=== PATIENT | female | born 1955 | race Caucasian/White ===

== ENCOUNTER 2016-08-27 23:29 | Emergency (ER) | payer OTHER ==
[~2016-08-27] VITALS: Ht 160 cm; Wt 98.2 kg
[~2016-08-27 23:29] MED LIST: ALBUAER2 INH; ALEN70TA4 PO; AMLO5TAB2 PO; ASPI81TA28 PO; CALC500C70 PO; CMD25 PO; DIPH-437 PO; LPR25 PO; MOME100A INH; POTA1TAB PO; SIMV20TA2 PO; prednisone; zithromax
[2016-08-27 23:33] VITALS: TEMP 36.8; Ht 160 cm; Wt 98.2 kg
[2016-08-27] MEDS ORDERED: MoRPHine SULFATE 4 MG/ML 1 ML CARP\\VIAL IV STA (23:50)
[2016-08-27] MEDS ORDERED: ONDANSETRON INJ 2 MG/ML 2 ML VIAL IV STA (23:50)
[2016-08-28 00:03] VITALS: O2SAT 96
[2016-08-28 00:19] LABS: BASO % 0.3 %; BASO ABS # 0.03 K/uL (0-0.2); COMPLETE YES; EOS % 1.2 %; HEMATOCRIT 40.8 % (37-47); IG% 0.3 %; LYMPH % 28.9 %; LYMPH ABS # 2.75 K/uL (1.2-3.4); MEAN CELL VOLUME 84.3 fL (80-100); MEAN CORPUSCULAR HEMOGLOBIN 27.7 pg (25-34); MEAN CORPUSCULAR HGB CONC 32.8 g/dl (32-36); MEAN PLATELET VOLUME 9.8 fL (7.4-10.4); MONO % 6.9 %; NEUT % 62.4 %; PLATELET COUNT 333 K/uL (130-400); RED BLOOD COUNT 4.84 M/uL (4.2-5.4); WHITE BLOOD COUNT 9.53 K/uL (4.8-10.8)
[2016-08-28] MEDS ORDERED: LEVO50TA6 PO (00:19)
[2016-08-28] MEDS ORDERED: MAGN400T6 PO (00:20)
[2016-08-28] MEDS ORDERED: POTA20TA16 PO (00:20)
[2016-08-28] MEDS ORDERED: PRLSR20 PO (00:21)
[2016-08-28] MEDS ORDERED: METO25TA56 PO (00:23)
[2016-08-28] MEDS ORDERED: INDA1TAB3 PO (00:25)
[2016-08-28] MEDS ORDERED: SODIUM CHLORIDE 0.9% 500ML 500 ML IV STA (00:26)
[2016-08-28 00:44] LABS: ALT/SGPT 18 U/L (12-78); BLOOD UREA NITROGEN 15 mg/dl (7-18); BUN/CREATININE RATIO 12.8 (10-20); CALCIUM 9.2 mg/dl (8.5-10.1); CARBON DIOXIDE 28 mmol/L (21-32); CHLORIDE 105 mmol/L (98-107); GLUCOSE 88 mg/dl (70-99); MAGNESIUM 2.2 mg/dl (1.8-2.4); POTASSIUM 3.9 mmol/L (3.5-5.1); SODIUM 142 mmol/L (136-145)
[2016-08-28] MEDS ORDERED: OPTIRAY 320 IV PRN (00:45)
[2016-08-28 00:48] LABS: ALKALINE PHOSPHATASE 63 U/L (45-117); AST/SGOT 20 U/L (15-37); CKMB/CK RATIO 0.7 (0-3.0)
--- NOTE | 2016-08-28 02:23 | EMERGENCY ROOM VISIT NOTE ---
History First contact with patient: 23:37 Chief Complaint: BACK PAIN Stated Complaint: PULLED MUSCLE IN BACK History of Present Illness The patient is a 61 year old female who presents to the Emergency Room with complaints of left upper back and lateral chest pain for the past day described as aching, 9 out of 10. Nothing makes it better or worse. She tried Tylenol with no relief of symptoms. Patient denies dyspnea, fever, chills, abdominal pain, arm pain, numbness, tingling, rash. Patient has had blood clots in the past. She has a history of initial fibrillation. She is only taking a baby aspirin. Patient quit smoking. No recent travel. No leg pain or swelling. Review of Systems See HPI for pertinent positives & negatives. A total of 10 systems reviewed and were otherwise negative. Past Medical/Surgical History Medical Problems: (1) Appendectomy (2) section (3) Hyperlipidemia (4) Hypertension a fibrillation, COPD Family History Heart disease Social History Smoking Status: Former Smoker Alcohol Use: occasionally Drug Use: none Marital Status: in relationship Occupation Status: employed Current/Historical Medications Scheduled Alendronate Sodium (Fosamax), 70 MG PO WK Aspirin (Aspirin Ec), 81 MG PO DAILY Calcium/Vitamin D (Os-Joel 500 Plus D), 1 TAB PO DAILY Indapamide (Lozol), 1.25 MG PO DAILY Levothyroxine Sodium (Levothyroxine Sodium), 50 MCG PO DAILY Magnesium Oxide (Mag-Ox), 400 MG PO DAILY Metoprolol Tartrate (Lopressor) (Lopressor), 12.5 MG PO BID Mometasone Furoate-Formoterol (Dulera 100/5 Mcg), 2 PUFFS INH BID Omeprazole (Prilosec), 20 MG PO DAILY Potassium Ext Rel (Klor-Con), 20 MEQ PO DAILY Potassium Gluconate (Potassium Gluconate), 1 TAB PO DAILY Simvastatin (Zocor), 40 MG PO QPM Scheduled PRN Acetaminophen/Diphenhydramine (Tylenol Pm), 1 TAB PO HS PRN for Insomnia Albuterol (Ventolin), 2 PUFFS INH BID PRN for SOB/Wheezing Allergies Coded Allergies: Cephalexin (Verified Allergy, Unknown, ., 08/28/16) Bupropion (Verified Adverse Reaction, Intermediate, seizures, 08/28/16) Lobster (Verified Adverse Reaction, Intermediate, VOMITING, 08/28/16) Physical Exam Vital Signs Date Time Temp Pulse Resp B/P Pulse Ox O2 Delivery O2 Flow Rate FiO2 08/28/16 01:01 61 20 131/70 95 Room Air 08/28/16 00:10 66 08/28/16 00:03 96 Room Air 08/27/16 23:33 36.8 68 20 166/91 95 Room Air Physical Exam VITALS: Vitals are noted on the nurse's note and reviewed by myself. Vital signs stable. GENERAL: Pleasant female, in no acute distress, nondiaphoretic, well-developed well-nourished. SKIN: The skin was without rashes, erythema, edema, or bruising. There is no tenting of the skin. Capillary reflex less than 2 seconds. HEAD: Normocephalic atraumatic. EARS: External auditory canals clear, tympanic membranes pearly vargas without erythema or effusion bilaterally. EYES: Pupils equal round and reactive to light and accommodation. Conjunctivae without injection, sclerae without icterus. Extraocular movements intact. NOSE: Patent, turbinates without inflammation or discharge MOUTH: Mucous membranes moist. Pharynx without erythema or exudate. Uvula midline. Airway patent. Tongue does not deviate. NECK: Supple without nuchal rigidity. No lymphadenopathy. No thyromegaly. Cervical spine is nontender. No JVD. HEART: Regular rate and rhythm LUNGS: Clear to auscultation bilaterally without wheezes, rales or rhonchi. No dullness to percussion. No retractions or accessory muscle use. ABDOMEN: Positive bowel sounds x 4. Normal tympanic percussion. Soft, nontender, without masses or organomegaly. Guaman sign negative. No guarding or rebound tenderness. MUSCULOSKELETAL: No muscle atrophy, erythema, or edema noted. Minimal T6 and 7 tenderness to palpation. No rashes appreciated. No lumbar tenderness. Left upper centrifugal screen tender to palpation. NEURO: Patient was alert and oriented to person place and time. Normal sensation to light and sharp touch. No focal neurological deficits. Medical Decision & Procedures Laboratory Results 08/28/16 00:05 Red Blood Count 4.84, Mean Corpuscular Volume 84.3, Mean Corpuscular Hemoglobin 27.7, Mean Corpuscular Hemoglobin Concent 32.8, Mean Platelet Volume 9.8, Neutrophils (%) (Auto) 62.4, Lymphocytes (%) (Auto) 28.9, Monocytes (%) (Auto) 6.9, Eosinophils (%) (Auto) 1.2, Basophils (%) (Auto) 0.3, Neutrophils # (Auto) 5.95, Lymphocytes # (Auto) 2.75, Monocytes # (Auto) 0.66, Eosinophils # (Auto) 0.11, Basophils # (Auto) 0.03 08/28/16 00:05 Test 08/28/16 00:05 08/28/16 00:08 08/28/16 02:03 White Blood Count 9.53 K/uL (4.8-10.8) Red Blood Count 4.84 M/uL (4.2-5.4) Hemoglobin 13.4 g/dL (12.0-16.0) Hematocrit 40.8 % (37-47) Mean Corpuscular Volume 84.3 fL (80-100) Mean Corpuscular Hemoglobin 27.7 pg (25-34) Mean Corpuscular Hemoglobin Concent 32.8 g/dl (32-36) Platelet Count 333 K/uL (130-400) Mean Platelet Volume 9.8 fL (7.4-10.4) Neutrophils (%) (Auto) 62.4 % Lymphocytes (%) (Auto) 28.9 % Monocytes (%) (Auto) 6.9 % Eosinophils (%) (Auto) 1.2 % Basophils (%) (Auto) 0.3 % Neutrophils # (Auto) 5.95 K/uL (1.4-6.5) Lymphocytes # (Auto) 2.75 K/uL (1.2-3.4) Monocytes # (Auto) 0.66 K/uL (0.11-0.59) Eosinophils # (Auto) 0.11 K/uL (0-0.5) Basophils # (Auto) 0.03 K/uL (0-0.2) RDW Standard Deviation 46.7 fL (36.4-46.3) RDW Coefficient of Variation 15.2 % (11.5-14.5) Immature Granulocyte % (Auto) 0.3 % Immature Granulocyte # (Auto) 0.03 K/uL (0.00-0.02) Anion Gap 9.0 mmol/L (3-11) Est Creatinine Clear Calc Drug Dose 55.7 ml/min Estimated GFR () 56.9 Estimated GFR (Non- 49.1 BUN/Creatinine Ratio 12.8 (10-20) Calcium Level 9.2 mg/dl (8.5-10.1) Magnesium Level 2.2 mg/dl (1.8-2.4) Total Bilirubin 0.4 mg/dl (0.2-1) Direct Bilirubin < 0.1 mg/dl (0-0.2) Aspartate Amino Transf (AST/SGOT) 20 U/L (15-37) Alanine Aminotransferase (ALT/SGPT) 18 U/L (12-78) Alkaline Phosphatase 63 U/L (45-117) Total Creatine Kinase 210 U/L (26-192) Creatine Kinase MB 1.4 ng/ml (0.5-3.6) Creatine Kinase MB Ratio 0.7 (0-3.0) Total Protein 8.0 gm/dl (6.4-8.2) Albumin 3.6 gm/dl (3.4-5.0) Lipase 114 U/L (73-393) Bedside D-Dimer > 450 ng/mlFEU (0-450) Bedside Troponin I 0.000 ng/ml (0-0.045) Medications Administered Medications (Trade) Dose Ordered Sig/Danyelle Route Start Time Stop Time Status Last Admin Dose Admin Morphine Sulfate (MoRPHine SULFATE INJ) 4 mg NOW STAT IV 08/27/16 23:50 08/27/16 23:52 DC 08/28/16 00:14 4 MG Ondansetron HCl 4 mg 4 mg NOW STAT IV 08/27/16 23:50 08/27/16 23:52 DC 08/28/16 00:13 4 MG Sodium Chloride (Nss 500ml) 500 ml @ 999 mls/hr Q31M STAT IV 08/28/16 00:26 08/28/16 00:56 DC 08/28/16 00:40 999 MLS/HR ED Course Prior records/ancillary studies reviewed. Triage Nursing notes reviewed. Additional history obtained from family The patient's history was concerning for back pain. Differential diagnosis: Etiologies such as musculoskeletal, cardiac, PE, disc herniation, fracture, aortic disease, metastatic disease, cord compression, discitis, infection, renal colic, gastrointestinal, acute exacerbation of chronic back pain, sciatica , cauda equina, as well as others were entertained. Physical findings: As above. No focal neurologic findings noted. ER treatment provided: Morphine, Zofran On reassessment the patient felt better. Diagnostics interpreted by me: EKG: Normal sinus, normal intervals, no acute ST-T wave changes. Impression normal sinus rhythm interpreted by myself The labs revealed 2 negative troponins. Imaging studies: CTA CHEST: Comparison is made to CT chest with contrast dated 02/03/16. There is no evidence of acute pulmonary embolism. Thoracic aorta and main pulmonary artery are normal in caliber. There is stable mild cardiomegaly with coronary atherosclerosis. There is no significant pericardial effusion. There is no adenopathy by CT size criteria. There is mild paraseptal emphysema. There is no consolidation, effusion, or pneumothorax. There is no pulmonary nodule or mass. Visualized upper abdomen is unremarkable. There are no acute osseous findings. Radiologist: Danya Alonzo M.D. Chest x-ray with no acute consolidation or pneumothorax per my interpretation This appears to be consistent with left upper back chest pain. Patient was informed of signs or symptoms of shingles. She was advised that she developed a rash that she should call her family care DrRuddy for medications. Patient had a normal EKG. No acute findings and CTA imaging. She had an elevated d-dimer so CT imaging was ordered. 2 negative troponins. She is advised to rest, stay well-hydrated and follow-up family care in a day or 2 or here in the ER sooner for chest pain, difficulty breathing, inability to walk, worsening signs or symptoms or as needed. The patient's physical examination and detailed history did not reveal any red flags for back pain such as those listed in the differential diagnosis. Therefore advanced diagnostics and consultations were felt to be unwarranted. By the evaluation outlined above emergent etiologies such as fracture, aortic disease, metastatic disease, infection, renal colic, gastrointestinal, cord compression, cauda equina, as well as others were deemed relatively unlikely. The pt informed about the findings as listed above. All questions were answered and pleased with the treatment. Return instructions were outlined and the patient was discharged in stable condition. Referral: The patient was referred back to primary care physician for follow-up in 2 to 3 days for a recheck of the current condition. Case reviewed by attending. Medical Decision As above Impression Primary Impression: Upper back pain on left side Departure Information Dispostion Home / Self-Care Condition GOOD Referrals Ryan Dixon D.O. (PCP) Patient Instructions A Signature Page, My [facility] Additional Instructions DO NOT drive, drink alcohol, operate machinery, or perform dangerous activities today. You were given medications in the ER that can affect your ability to safely function or operate a vehicle. If you develop a shingles rash then call your family care Dr. for steroids and antivirals. Oxycodone (OxyIR) 5mg: Take 1-2 pills every four hours for breakthrough pain. Avoid alcohol, operating machinery or dangerous equipment, working on ladders or roofs, DRIVING, or situations where being under the influence may be dangerous. It is recommended to use an [id number] stool softener such as Colace, 100mg twice daily while taking this medication to avoid constipation. Ibuprofen(Motrin, Advil) may be used for fever or pain. Use 600mg every six hours as needed. Take with food. Avoid using more than 2400mg in a 24 hour period. Do not use 2400mg per day for more than three consecutive days without physician direction. Prolonged inappropriate use can lead to stomach upset or ulcers. This medication can be taken if you need to drive, work, or perform activities which may be dangerous when taking narcotic pain medication. (AND/OR) Acetaminophen(Tylenol) may be used for fever or pain. Use 1000mg every six hours as needed. Avoid using more than 3000mg in a 24 hour period. This medication can be taken if you need to drive, work, or perform activities which may be dangerous when taking narcotic pain medication. Rest and avoid heavy lifting until your symptoms resolve and then gradually return to full activity. A good rule of thumb is if it hurts your back to perform a certain activity, then it should be avoided until you are healthy again. A heating pad, warm compresses, or a hot shower may help with tight muscles and can be done several times a day as needed. Continue current medications. Return to the ER immediately for any numbness, tingling, severe pain, chest pain , difficulty breathing, loss of control of your bowels or bladder, inability to walk, or as needed. Follow up with your primary care physician within 3-5 days for a recheck of your current condition.
[2016-08-28] MEDS ORDERED: OXYCODONE IR HOME PACK PO ONE (02:30)
[2016-08-28 02:34] VITALS: BP 137/71; PULSE 65; O2SAT 95
--- NOTE | 2016-08-28 06:42 | DIAGNOSTIC IMAGING REPORT ---
CHEST ONE VIEW PORTABLE CLINICAL HISTORY: Atypical chest pain COMPARISON STUDY: 08/09/2015 FINDINGS: The heart is borderline enlarged. There is no focal pulmonary consolidation. There is no failure. There are no pleural effusions.[ IMPRESSION: No active disease in the chest. Electronically signed by: Larry Sanchez M.D. 08/28/2016 6:41 AM Dictated Date/Time: 08/28/2016 6:40 AM
--- NOTE | 2016-08-28 07:09 | DIAGNOSTIC IMAGING REPORT ---
CT ANGIOGRAM OF THE CHEST CLINICAL HISTORY: Upper back pain. Suspected pulmonary embolism. COMPARISON STUDY: 02/03/2016 TECHNIQUE: Following the IV administration of 105 mL of Optiray-320, CT angiogram of the thorax was performed from the thoracic inlet to the lung bases utilizing the pulmonary embolus protocol. Images are reviewed in the axial, sagittal, and coronal planes. IV contrast was administered without complication. MIP imaging was performed. CT DOSE: 548.31 mGy.cm FINDINGS: The upper abdomen reveals fatty atrophy of the pancreas. There are mildly enlarged AP window lymph nodes slightly progressive when compared the preceding study. Right paratracheal lymph nodes are the upper limits of normal in size. There is no pathologic axillary lymphadenopathy. There was no evidence of thoracic aortic dilatation. There are coronary artery calcifications present. There were no pulmonary artery filling defects to indicate acute pulmonary embolism. No pleural effusions are visualized. There is no focal pulmonary consolidation. There are dependent atelectatic changes. There is mild emphysema. IMPRESSION: 1. No CT evidence of acute pulmonary embolism 2. Minimally enlarged mediastinal lymph nodes (this finding was not described in the pulmonary report) 3. No evidence of focal pulmonary consolidation Electronically signed by: Larry Sanchez M.D. 08/28/2016 7:08 AM Dictated Date/Time: 08/28/2016 7:02 AM
== END 2016-08-28 02:36 | disposition home or self-care (01) ==
LOC: C.EDB 23:30 → C.EDA 08-28 02:36
DX: M54.9 Dorsalgia, unspecified (principal); R07.9 Chest pain, unspecified; I48.91 Unspecified atrial fibrillation; Z79.82 Long term (current) use of aspirin; Z87.891 Personal history of nicotine dependence; E78.5 Hyperlipidemia, unspecified; I10 Essential (primary) hypertension; J44.9 Chronic obstructive pulmonary disease, unspecified; Z79.899 Other long term (current) drug therapy

== ENCOUNTER 2016-11-14 19:45 | Emergency (ER) | payer OTHER ==
[~2016-11-14] VITALS: Ht 157.5 cm; Wt 98.0 kg
[~2016-11-14 19:45] MED LIST changes: -AMLO5TAB2 PO; -CMD25 PO; +INDA1TAB3 PO; +LEVO50TA6 PO; -LPR25 PO; +MAGN400T6 PO; +METO25TA56 PO; +POTA20TA16 PO; +PRLSR20 PO; -prednisone; -zithromax
[2016-11-14 19:57] VITALS: TEMP 36.8; Ht 157.5 cm; Wt 98.0 kg
[2016-11-14] MEDS ORDERED: IBUPROFEN 600 MG TAB PO STA (20:18)
--- NOTE | 2016-11-14 20:41 | DIAGNOSTIC IMAGING REPORT ---
RIGHT ANKLE MIN 3 VIEWS ROUTINE CLINICAL HISTORY: fall; R ankle pain Right trauma. Pain. COMPARISON: None. DISCUSSION: Small avulsion from the tip of the distal fibula. This is well-corticated and is of indeterminate age. Tiny avulsion tip medial malleolus. Soft tissue edema over both the lateral as well as medial malleolus. Small heel spur. Subtalar joint is intact. IMPRESSION: 1. Avulsion from the tip of the distal fibula indeterminate age.. 2. Tiny punctate avulsion tip medial malleolus. 3. Soft tissue edema. Electronically signed by: Winston Davis M.D. 11/14/2016 8:40 PM Dictated Date/Time: 11/14/2016 8:38 PM
[2016-11-14] MEDS ORDERED: MECL1TAB40 PO (21:09)
[2016-11-14] MEDS ORDERED: FLX5 PO (21:09)
[2016-11-14] MEDS ORDERED: PRVHFAIN INH (21:09)
[2016-11-14] MEDS ORDERED: PROM25TA9 PO (21:09)
[2016-11-14] MEDS ORDERED: AZITTAB PO (21:09)
[2016-11-14] MEDS ORDERED: PRED10PA4 PO (21:09)
[2016-11-14] MEDS ORDERED: PRMVC VI (21:09)
[2016-11-14] MEDS ORDERED: INDA2.5T PO (21:09)
[2016-11-14] MEDS ORDERED: SIMV40TA2 PO (21:14)
[2016-11-14 21:42] VITALS: BP 144/81; PULSE 62; O2SAT 98
--- NOTE | 2016-11-16 01:38 | EMERGENCY ROOM VISIT NOTE ---
ED Visit Note First contact with patient: 20:04 CHIEF COMPLAINT: Right ankle pain. HISTORY OF PRESENT ILLNESS: Ms. Osborn is a 61-year old white female who ambulates into the ED accompanied by a male friend complaining of right ankle pain. She reports approximately 10 hours ago she stepping out of her house and twisted her ankle. Immediately after the fall she was having pain but was able to stand up and work for the rest of the day. Throughout the day she reports that she was having worsening pain and noted swelling throughout the ankle. She is currently complaining of constant achy pain over the medial and lateral malleolus area. She rates the pain a 5/10. Pain is nonradiating. Her pain worsens with ambulation, plantar flexion and inversion. She has not identified any alleviating factors related to the pain. She has not taken any medication for pain prior to arrival at the hospital. She denies any associated symptoms including hip pain, knee pain, lower leg pain, foot pain, leg weakness/numbness/ tingling. She denies any previous significant injuries or surgeries to the right ankle or foot. REVIEW OF SYSTEMS: As noted above in History of Present Illness. PAST MEDICAL HISTORY: Hypertension, unspecified heart disease, asthma, bronchitis, pneumonia, unspecified stomach disorder, DVT in the left leg, status post appendectomy, section 2 and unspecified knee surgery. CURRENT MEDICATIONS: Medications Dose Route/Sig Max Daily Dose Days Date Category Dose Instructions Zocor (Simvastatin) 40 Mg Tab 40 Mg PO QPM 11/14/16 Reported Meclizine HCl 12.5 Mg Tab 1 Tab PO TID PRN 10 11/14/16 Reported Phenergan (Promethazine HCl) 25 Mg Tab 25 Mg PO Q6H PRN 11/14/16 Reported Prednisone 10 Mg Jacob Unknown Dose PO DIRECTED PRN 11/14/16 Reported Premarin (Estrogens, Conjugated) 14 Appln/30 Gm Cr 1 Dose 2XWK 11/14/16 Reported Cyclobenzaprine HCl 5 Mg Tab 5 Mg PO TID PRN 11/14/16 Reported Zithromax Z-Jacob (Azithromycin) 250 Mg Tab 1 Pkt PO UD PRN 5 11/14/16 Reported Indapamide 2.5 Mg Tab 12.5 Mg PO DAILY 90 11/14/16 Reported Ventolin Hfa (Albuterol) 60 Puffs/5400 Mcg Aers 2 Puffs INH BID 11/14/16 Reported Lopressor (Metoprolol Tartrate) 25 Mg Tab 12.5 Mg PO BID 08/28/16 Reported Prilosec (Omeprazole) 20 Mg Capcr 20 Mg PO DAILY 08/28/16 Reported Mag-Ox (Magnesium Oxide) 400 Mg Tab 400 Mg PO DAILY 08/28/16 Reported Levothyroxine Sodium 50 Mcg Tab 50 Mcg PO DAILY 90 08/28/16 Reported Tylenol Pm (Acetaminophen/Diphenhydramine HCl) 500 Mg/25 Mg Tab 1 Tab PO HS PRN 02/02/15 Reported Potassium Gluconate 595 Mg Tab 1 Tab PO DAILY 02/02/15 Reported Os-Joel 500 Plus D (Calcium/Vitamin D) Tab 1 Tab PO DAILY 02/02/15 Reported Fosamax (Alendronate Sodium) 70 Mg Tab 70 Mg PO WK 02/02/15 Reported pt states takes on saturdays Dulera 100/5 Mcg (Mometasone Furoate-Formoterol) 1 Aer Aer 2 Puffs INH BID 02/02/15 Reported Aspirin Ec (Aspirin) 81 Mg Tab 81 Mg PO DAILY 02/02/15 Reported ALLERGIES TO MEDICATIONS: Keflex, Wellbutrin. SOCIAL HISTORY: Patient is currently employed; she feels safe in her home environment; she denies tobacco use; she admits to alcohol use. PHYSICAL EXAM: Vital Signs: Date Time Temp Pulse Resp B/P Pulse Ox O2 Delivery O2 Flow Rate FiO2 11/14/16 21:42 62 18 144/81 98 Room Air 11/14/16 19:57 36.8 64 18 158/72 95 Room Air General: 61 year old female in mild/moderate distress due to pain, nontoxic- appearing, afebrile and hemodynamically stable. Neurological: Awake, alert, oriented to person place and time. Answering questions appropriately and following commands. Skin: Warm dry and pink. No soft tissue injuries. Right Lower Extremity: No gross amanda deformities. No tenderness in the hip or knee. Tenderness over the medial and lateral malleoli and the ligamentous structures anterior and posterior to the malleoli. There is moderate swelling slightly more prominent over the lateral aspect. I do not appreciate any bony deformity or crepitus. There is no ecchymosis. Patient was quite painful and I attempted to stress her ligamentous structures and I feel the test was invalid because of her discomfort. I did not appreciate any gross ligamentous laxity. She was able to plantarflex and dorsiflex the ankle without difficulty but did increase her pain. She was able to flex and extend all toes. Throughout the foot the skin is pink and warm with brisk capillary refill. Able to distinguish light sensations through all dermatomes of the foot. ED COURSE: Patient is assessed as noted above. Right Ankle X-Rays: Was read by myself and the radiologist and shows small avulsion fractures to the distal fibula and distal tibia. There is soft tissue swelling over the lateral and medial malleolus. Radiologist notes a heel spur and subpatellar joint is intact. Patient is given 600 mg of ibuprofen and ice for pain, swelling and comfort. Patient is placed in a gel splint; she refused crutches but did report that she had a walker and a cane at home she would be able to use. Patient is educated about her condition and instructed on her treatment plan; she verbalizes understanding and agreement with the our plan. CLINICAL IMPRESSION: Right ankle pain. Sprain versus chip fractures. DISPOSITION: Patient is discharged to home in stable condition accompanied by her male friend; prior to departure she was reassessed and subjectively reported she was pain-free. PLAN: Comfort measures were discussed with the patient. Patient was encouraged to follow-up with an orthopedic physician if no better in 7 to 10 days. Patient was encouraged to return ED for worsening/uncontrolled pain, worsening swelling, foot weakness/numbness/tingling or any new/concerning symptoms.
== END 2016-11-14 21:43 | disposition home or self-care (01) ==
LOC: C.EDB 19:45 → C.EDD 21:43
DX: M25.571 Pain in right ankle and joints of right foot (principal); X50.0XXA Overexertion from strenuous movement or load, initial encounter; Y92.009 Unspecified place in unspecified non-institutional (private) residence as the place of occurrence of the external cause; I10 Essential (primary) hypertension; J45.909 Unspecified asthma, uncomplicated; Z87.01 Personal history of pneumonia (recurrent); Z86.718 Personal history of other venous thrombosis and embolism; Z79.899 Other long term (current) drug therapy; Z79.82 Long term (current) use of aspirin